=== PATIENT | male | born 1945 | race Caucasian/White ===

== ENCOUNTER → 2016-12-09 | Outpatient (CLI) | payer OTHER, BC ==
[~2016-12-09] MED LIST: COQ-10100 MG PO; PRAVACHOL40 MG PO; VITAMIN D2000 UNI1 PO; Vitamin B-12 SL
[2016-12-09 12:11] LABS: HEMATOCRIT 49.6 % (38.0-50.0); MCH 30.4 PG (29.0-34.0); MCHC 32.3 G/DL (30.0-36.0); MCV 94.1 FL (86-99); MEAN PLAT.VOLUME 8.9 uM^3 (9.0-12.4); PLATELET COUNT 255 K/uL (156-360); RBC DIS.WIDTH-CV 13.3 % (11.8-14.6); RBC DIS.WIDTH-SD 45.9 % (39-53); RED BLOOD COUNT 5.27 M/uL (4.00-5.50); WHITE BLOOD COUNT 7.4 K/uL (4.1-10.2)
[2016-12-09 12:20] LABS: PROTHROMBIN TIME 10.4 (9.2-11.2); PTT 30.9 (25-32)
== END | disposition home or self-care (01) ==
LOC: OPR 11:36 → EDSTATUS 14:00 → OPR 14:00
PROVIDERS: Orthopaedic Surgery
PROC: 0S9D3ZZ Drainage of Left Knee Joint, Percutaneous Approach (ICD-10-PCS; principal; 2016-12-09)
DX: M25.862 Other specified joint disorders, left knee (principal); M21.372 Foot drop, left foot; Z96.652 Presence of left artificial knee joint
CPT/HCPCS: 77012; 85027; 85610; 85730; J3010

== ENCOUNTER 2018-01-27 06:42 | Day surgery (SDC) | payer OTHER, BC ==
[~2018-01-27] VITALS: Ht 180.3 cm; Wt 87.1 kg
[~2018-01-27 06:42] MED LIST changes: +IRON325 M1 PO; +VITAMIN B-121000 MC3 PO; -VITAMIN D2000 UNI1 PO; +VITAMIN D31000 UNIT PO
[2018-01-27 07:35] VITALS: BP 128/65
[2018-01-27 13:46] VITALS: BP 109/61
[2018-01-27 14:59] VITALS: BP 115/60
== END 2018-01-27 17:01 | disposition home or self-care (01) ==
LOC: SDC 06:42
PROC: 0SRD0J9 Replacement of Left Knee Joint with Synthetic Substitute, Cemented, Open Approach (ICD-10-PCS; principal; 2018-01-27)
DX: M17.12 Unilateral primary osteoarthritis, left knee (principal); E78.00 Pure hypercholesterolemia, unspecified; Z79.01 Long term (current) use of anticoagulants
CPT/HCPCS: C1713; J0690; J1885; J2795; J3475; J7050; J7120